=== PATIENT | male | born 2000 | race Hispanic/Latino ===

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

== ENCOUNTER 2020-12-11 07:31 | Emergency (ER) | payer SELFPAY ==
[2020-12-11] MEDS ORDERED: Ketorolac Tromethamine 30 MG/ML VIAL ONE (08:12)
[2020-12-11] MEDS ORDERED: Metoclopramide HCl 10 MG/2 ML VIAL ONE (08:12)
[2020-12-11] MEDS ORDERED: Meclizine HCl 25 MG TAB ONE (09:23)
[2020-12-11] MEDS ORDERED: Acetaminophen 500 MG TAB ONE (09:23)
== END 2020-12-11 10:45 | disposition home or self-care (01) ==
LOC: ERS 07:31
DX: R51.9 Headache, unspecified (principal); R42 Dizziness and giddiness
CPT/HCPCS: 96365; 96375; J1885; J2765

== ENCOUNTER 2021-04-23 09:16 | Emergency (ER) | payer SELFPAY ==
[2021-04-23] MEDS ORDERED: Acetaminophen 500 MG TAB ONE (10:58)
[2021-04-23] MEDS ORDERED: Ketorolac Tromethamine 30 MG/ML VIAL ONE (10:58)
[2021-04-23 11:52] LABS: ALT (SGPT) 27 U/L (8-55); AST (SGOT) 17 U/L (5-34); Albumin 4.3 g/dL (3.5-5.0); Alkaline Phosphatase 153 U/L (50-130); Anion Gap 14 mmol/L (10-20); BUN (Urea Nitrogen) 9 mg/dL (8.9-20.6); Bilirubin, Total 1.8 mg/dL (0.2-1.2); Calc. Creatinine Clearance 0 mL/min (70-130); Calcium 9.6 mg/dL (7.8-10.44); Carbon Dioxide 22 mmol/L (22-29); Chloride 100 mmol/L (98-107); Globulin 3.9 g/dL (2.4-3.5); Glucose 109 mg/dL (70-105); Potassium 3.1 mmol/L (3.5-5.1); Protein, Total 8.2 g/dL (6.0-8.3); Sodium 133 mmol/L (136-145)
[2021-04-23 11:58] LABS: SARS-CoV-2 NAA Rapid Test Not Detected (NotDetected)
[2021-04-23 12:54] LABS: Hemoglobin 13.6 g/dL (14.0-18.0); Mean Corpuscular HGB CONC 35.1 g/dL (32.0-36.0); Mean Corpuscular Volume 88.5 fL (78.0-98.0); Mean Platelet Volume 10.5 fL (7.4-10.4); Platelet Count 126 thou/uL (130-400); RBC Distribution Width 11.2 % (11.5-14.5); White Blood Cell (WBC) Count 17.5 thou/uL (4.8-10.8)
[2021-04-23] MEDS ORDERED: Potassium Chloride 20 MEQ TAB ONE (12:55)
[2021-04-23] MEDS ORDERED: Dexamethasone 4 mg/ml Vial ONE (12:57)
[2021-04-23] MEDS ORDERED: Dexamethasone 10 MG/ML VIAL ONE (12:59)
[2021-04-23 13:13] LABS: Band 21 % (5-11); Lymphocytes 5 % (28-48); MDiff Complete? YES; Monocytes 3 % (0-4); Neutrophil 65 % (31-61); Platelet Morphology Comment Appears Decreased; RBC Morphology Normal; Reactive Lymphocytes 6 % (0-10)
== END 2021-04-23 13:18 | disposition home or self-care (01) ==
LOC: ERS 09:16
DX: J02.9 Acute pharyngitis, unspecified (principal); Z20.822 Contact with and (suspected) exposure to COVID-19
CPT/HCPCS: 0240U; 80053; 85025; 87081; 87430; 93005; 96374; 96375; J1100; J1885

== ENCOUNTER 2024-06-06 16:45 | Emergency (ER) | payer SELFPAY ==
[2024-06-06] MEDS ORDERED: Ketorolac Tromethamine 30 MG (1 mL) VIAL ONE (18:47)
[2024-06-06] MEDS ORDERED: diphenhydrAMINE 50 MG/ML VIAL ONE (18:47)
[2024-06-06] MEDS ORDERED: Metoclopramide HCl 10 MG (2 mL) VIAL ONE (18:48)
[2024-06-06] MEDS ORDERED: Magnesium 2 GM/50 ML BAG (IN WATER) ONE (20:12)
[2024-06-06] MEDS ORDERED: Morphine 4 MG/ML VIAL ONE (20:12)
[2024-06-06] MEDS ORDERED: Dexamethasone 10 MG/ML VIAL ONE (20:12)
== END 2024-06-06 21:37 | disposition home or self-care (01) ==
LOC: ERS 16:45
DX: R51.9 Headache, unspecified (principal); Z55.0 Illiteracy and low-level literacy
CPT/HCPCS: 70450; 71045; 87428; 96365; 96375; J1100; J1200; J1885; J2272; J2765; J3475